=== PATIENT | male | born 1955 | race Caucasian/White ===

== ENCOUNTER 2023-03-30 19:13 | Emergency (ER) | payer MEDICARE ==
--- NOTE | 2023-03-30 19:20 | ERPHSYRPT ---
- History of Present Illness Time Seen by Provider: 03/30/23 19:20 Source: patient Exam Limitations: no limitations Physician History: This is a 67-year-old white male patient who was feeling a little nauseated and therefore he took his omeprazole. He took a second omeprazole because of more mild and persistent nausea. He denies chest pain or shortness of breath. Soon after, because the nausea persisted, the patient took Mylanta, he then soon after took a second dose of Mylanta. He then noticed rash of his skin and face anterior posterior upper torso and bilateral hands with tightening of the throat without wheezing or nausea. Timing/Duration: today Severity: mild (To moderate) Associated Symptoms: nausea, rash, No vomiting, No abdominal pain, No shortness of breath, No heartburn, No chest pain, No syncope Allergies/Adverse Reactions: aluminum hydroxide [From Mylanta] Allergy (Intermediate, Verified 03/30/23 19:40) Rash calcium carbonate [From Mylanta] Allergy (Intermediate, Verified 03/30/23 19:40) Rash camphor [From Biofreeze] Allergy (Intermediate, Verified 03/30/23 19:40) Swelling magnesium [From Mylanta] Allergy (Intermediate, Verified 03/30/23 19:40) Rash magnesium hydroxide [From Mylanta] Allergy (Intermediate, Verified 03/30/23 19:4 0) Rash menthol [From Biofreeze] Allergy (Intermediate, Verified 03/30/23 19:40) Swelling simethicone [From Mylanta] Allergy (Intermediate, Verified 03/30/23 19:40) Rash Penicillins Allergy (Unknown, Verified 03/30/23 19:40) Home Medications: Amlodipine Besylate 5 mg [Norvasc 5 mg] 5 mg PO DAILY 03/30/23 [History] Aspirin EC 81 mg [Ecotrin 81 mg] 81 mg PO DAILY 03/30/23 [History] Cholecalciferol (Vitamin D3) [Vitamin D3] 25 mcg PO DAILY 03/30/23 [History] Gabapentin [Neurontin ] 300 mg PO DAILY 03/30/23 [History] Levothyroxine Sodium 150 Mcg [Synthroid 150 Mcg] 150 mcg PO DAILY 03/30/23 [History] Lisinopril/Hydrochlorothiazide [Lisinopril-Hctz 20-12.5 mg Tab] 1 tablet PO DAILY 03/30/23 [History] Metoprolol Succinate 50 mg [Toprol Xl 50 MG] 50 mg PO DAILY 03/30/23 [History] Omeprazole 20 mg PO DAILY 03/30/23 [History] PARoxetine HCL [Paroxetine HCl] 10 mg PO DAILY 03/30/23 [History] Pioglitazone HCl 15 mg PO DAILY 03/30/23 [History] Rosuvastatin Calcium 20 mg PO DAILY 03/30/23 [History] Tramadol HCl 50 mg [Ultram 50 mg] 50 mg PO BID 03/30/23 [History] Zinc Gluconate 50 mg [Zinc Gluconate 50 MG] 50 mg PO DAILY 03/30/23 [History] Travel Risk - International Travel Have you traveled outside of the country in past 3 weeks: No - Coronavirus Screening Are you exhibiting any of the following symptoms?: Yes Symptoms: Vomiting/Diarrhea Close contact with a COVID-19 positive Pt in past 14-21 Days: No - Review of Systems Constitutional: No Symptoms Eyes: No Symptoms Ears, Nose, & Throat: No Symptoms Respiratory: No Symptoms Cardiac: No Symptoms Abdominal/Gastrointestinal: Nausea, Vomiting, Appetite Changes, No Abdominal Pain, No Diarrhea Genitourinary Symptoms: No Symptoms Musculoskeletal: No Symptoms Skin: Rash Neurological: No Symptoms Psychological: No Symptoms Endocrine: No Symptoms Hematologic/Lymphatic: No Symptoms Immunological/Allergic: No Symptoms All Other Systems: Reviewed and Negative - Past Medical History Pertinent Past Medical History: Yes - Past Surgical History Past Surgical History: Yes - Nursing Vital Signs Nursing Vital Signs: Initial Vital Signs Temperature 97.2 F 03/30/23 19:22 Pulse Rate 76 03/30/23 19:22 Respiratory Rate 16 03/30/23 19:22 Blood Pressure 139/92 03/30/23 19:22 O2 Sat by Pulse Oximetry 98 03/30/23 19:22 Pain Scale Pain Intensity 0 - Physical Exam General Appearance: no apparent distress, alert, anxiety Eye Exam: PERRL/EOMI, eyes nml inspection Ears, Nose, Throat Exam: normal ENT inspection, moist mucous membranes Neck Exam: normal inspection, non-tender, supple, full range of motion Respiratory Exam: normal breath sounds, lungs clear, airway intact, No chest tenderness, No respiratory distress, No wheezing, No stridor Cardiovascular Exam: regular rate/rhythm, normal heart sounds, normal peripheral pulses Gastrointestinal/Abdomen Exam: soft, normal bowel sounds, No tenderness Rectal Exam: not done Back Exam: normal inspection, normal range of motion, No CVA tenderness, No vertebral tenderness Extremity Exam: normal inspection, normal range of motion, pelvis stable Neurologic Exam: alert, oriented x 3, cooperative, 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 tested, normal mood/affect, nml cerebellar function, nml station & gait, sensation nml Skin Exam: rash (Red, diffuse rash face neck head upper and posterior, upper and anterior torso bilateral upper extremity) Lymphatic Exam: No adenopathy SpO2 Interpretation: normal O2 Delivery: Room Air - Course Nursing assessment & vital signs reviewed: Yes EKG Interpreted by Me: RATE, Sinus Rhythm, NORMAL AXIS, NORMAL INTERVALS, NORMAL QRS, NORMAL ST-T, Other (No acute ischemic changes on today's twelve-lead EKG.) Ordered Tests: Active Orders 24 hr Category Date Time Status EKG-ER Only STAT Care 03/30/23 20:20 Active IV Insertion STAT Care 03/30/23 19:28 Active Pulse Oximetry (ED) STAT Care 03/30/23 19:28 Active ABDOMEN AND PELVIS W/0 CONTRAS [CT] Stat Exams 03/30/23 21:10 Taken CHEST WITH CONTRAST [CT] Stat Exams 03/30/23 23:33 Completed ABG [ARTERIAL BLOOD GASES] Stat Lab 03/30/23 23:30 Completed AMYLASE Stat Lab 03/30/23 21:38 Completed CBC W DIFF Stat Lab 03/30/23 21:10 Completed CMP Stat Lab 03/30/23 21:38 Completed LIPASE Stat Lab 03/30/23 21:38 Completed TROPONIN Q4H Lab 03/30/23 20:00 Completed TROPONIN Q4H Lab 03/31/23 04:30 Ordered TROPONIN Stat Lab 03/30/23 23:15 Completed BiPap/CPAP STAT RT 03/31/23 01:18 Active Medication Summary Generic Name Dose Route Start Last Admin Trade Name Freq PRN Reason Stop Dose Admin Sodium Chloride 1,000 mls @ 100 mls/hr 03/30/23 19:30 03/30/23 23:12 Sodium Chloride 0.9% 1000 Ml IV 04/29/23 19:29 999 mls/hr .Q10H SUJEY Infusion Norepinephrine/Dextrose 8 mg in 250 mls @ 15 mls/hr 03/31/23 01:38 03/31/23 01:41 Norepinephrine 8 Mg/250 [id number]-[id number] IV 04/30/23 01:37 8 mcg/min .[id number] PRN 15 mls/hr HYPOTENSION Administration Protocol 8 MCG/MIN Discontinued Medications Generic Name Dose Route Start Last Admin Trade Name Freq PRN Reason Stop Dose Admin Methylprednisolone Sodium 0 mg 03/30/23 19:28 03/30/23 19:59 Succinate 125 mg/ Sterile IV 03/30/23 19:29 125 mg Water 2 ml STAT ONE Administration Methylprednisolone Sodium 0 mg 03/30/23 22:23 03/30/23 22:27 Succinate 125 mg/ Sterile IV 03/30/23 22:24 125 mg Water 2 ml STAT ONE Administration Diphenhydramine HCl 50 mg 03/30/23 19:28 03/30/23 19:58 Diphenhydramine Hcl 50 Mg/Ml Vial IV 03/30/23 19:29 50 mg STAT ONE Administration Diphenhydramine HCl Confirm 03/30/23 19:50 Diphenhydramine Hcl 50 Mg/Ml Vial Administered 03/30/23 19:51 Dose 50 mg .ROUTE .STK-MED ONE Famotidine 20 mg 03/30/23 19:28 03/30/23 19:56 Famotidine 20 Mg/1 Vial IV 03/30/23 19:29 20 mg STAT ONE Administration Famotidine Confirm 03/30/23 19:50 Famotidine 20 Mg/1 Vial Administered 03/30/23 19:51 Dose 20 mg IV .STK-MED ONE Sodium Chloride 1,000 mls @ 999 mls/hr 03/31/23 01:26 03/31/23 01:52 Sodium Chloride 0.9% 1000 Ml IV 03/31/23 02:26 100 mls/hr .Q1H1M STA Infusion Methylprednisolone Sodium Succinate Confirm 03/30/23 19:51 Methylprednis Sod Succ 125 Mg/2 Ml Vial Administered 03/30/23 19:52 Dose 125 mg .ROUTE .STK-MED ONE Methylprednisolone Sodium Succinate Confirm 03/30/23 22:27 Methylprednis Sod Succ 125 Mg/2 Ml Vial Administered 03/30/23 22:28 Dose 125 mg .ROUTE .STK-MED ONE Ondansetron HCl 4 mg 03/30/23 19:28 03/30/23 19:56 Ondansetron Hcl 4 Mg/2 Ml Vial IV 03/30/23 19:29 4 mg STAT ONE Administration Ondansetron HCl Confirm 03/30/23 19:50 Ondansetron Hcl 4 Mg/2 Ml Vial Administered 03/30/23 19:51 Dose 4 mg .ROUTE .STK-MED ONE Ondansetron HCl 4 mg 03/31/23 01:43 03/31/23 01:48 Ondansetron Hcl 4 Mg/2 Ml Vial IV 03/31/23 01:44 4 mg STAT ONE Administration Ondansetron HCl Confirm 03/31/23 01:49 Ondansetron Hcl 4 Mg/2 Ml Vial Administered 03/31/23 01:50 Dose 4 mg .ROUTE .STK-MED ONE Sterile Water Confirm 03/30/23 19:50 Water For Injection,Sterile 10 Ml Vial Administered 03/30/23 19:51 Dose 10 ml IJ .STK-MED ONE Sterile Water Confirm 03/30/23 22:27 Water For Injection,Sterile 10 Ml Vial Administered 03/30/23 22:28 Dose 10 ml IJ .STK-MED ONE Lab/Rad Data: Laboratory Result Diagrams 03/30/23 21:10 03/30/23 21:38 Laboratory Results 03/30/23 03/30/23 03/30/23 Range/Units 23:30 23:15 21:38 WBC (4.0-10.5) x10^3/uL RBC (4.1-5.6) x10^6/uL Hgb (12.5-18.0) g/dL Hct (42-50) % MCV (78-100) fL MCH (26-32) pg MCHC (32-36) g/dL RDW (11.5-14.0) % Plt Count (150-450) x10^3/uL MPV (7.5-11.0) fL Gran % (36.0-66.0) % Immature Gran % (Auto) (0.00-0.4) % Nucleat RBC Rel Count (0.00-0.1) % Eos # (Auto) (0-0.5) x10^3/uL Immature Gran # (Auto) (0.00-0.03) x10^3u/L Absolute Lymphs (auto) (1.0-4.6) x10^3/uL Absolute Monos (auto) (0.0-1.3) x10^3/uL Absolute Nucleated RBC (0.00-0.01) x10^3u/L Lymphocytes % (24.0-44.0) % Monocytes % (0.0-12.0) % Eosinophils % (0.00-5.0) % Basophils % (0.0-0.4) % Absolute Granulocytes (1.4-6.9) x10^3/uL Basophils # (0-0.4) x10^3/uL Puncture Site LEFT RADIAL pCO2 36 (35-45) mmHg pO2 274 H* (75-100) mmHg Base Excess -0.6 (-2.0-2.0) O2 Saturation 97.9 (94-100) g/dF ABG pH 7.42 (7.35-7.45) ABG HCO3 23.4 (22-28) ABG O2 Sat (Measured) 99.7 (95-100) % Andrew Test YES A-a Gradient 394 a/A Ratio 0.41 Hemoglobin 17.8 Carboxyhemoglobin 0.8 (0.0-6.9) % THgb Methemoglobin 1.0 L (1.4-1.5) % Temperature 37.0 C POC O2 Flow Rate 100 % Inspiratory BiPAP 14 Expiratory BiPAP 8 Sodium 138 (137-145) mmol/L Potassium 3.0 L 3.4 L (3.5-5.1) mmol/L Chloride 101 (98-107) mmol/L Carbon Dioxide 28 (22-30) mmol/L Anion Gap 13.1 (5-15) MEQ/L BUN 20 (9-20) mg/dL Creatinine 1.03 (0.66-1.25) mg/dL Estimated GFR 80.6 ML/MIN Glucose 151 H (74-106) mg/dL Calcium 9.3 (8.4-10.2) mg/dL Total Bilirubin 0.70 (0.2-1.3) mg/dL AST 20 (17-59) U/L ALT 15 (0-50) U/L Alkaline Phosphatase 86 (38-126) U/L Troponin I < 0.012 (0.000-0.034) ng/mL Serum Total Protein 7.4 (6.3-8.2) g/dL Albumin 4.2 (3.5-5.0) g/dL Amylase 70 (30-110) U/L Lipase 41 (23-300) U/L Influenza Type A Ag (NEGATIVE) Influenza Type B Ag (NEGATIVE) RSV (PCR) (NEGATIVE) SARS-CoV-2 (PCR) (NEGATIVE) 03/30/23 03/30/23 03/30/23 Range/Units 21:10 20:28 20:00 WBC 13.6 H (4.0-10.5) x10^3/uL RBC 6.30 H (4.1-5.6) x10^6/uL Hgb 17.3 (12.5-18.0) g/dL Hct 54.5 H (42-50) % MCV 86.5 (78-100) fL MCH 27.5 (26-32) pg MCHC 31.7 L (32-36) g/dL RDW 15.1 H (11.5-14.0) % Plt Count 233 (150-450) x10^3/uL MPV 10.4 (7.5-11.0) fL Gran % 90.5 H (36.0-66.0) % Immature Gran % (Auto) 0.4 (0.00-0.4) % Nucleat RBC Rel Count 0.0 (0.00-0.1) % Eos # (Auto) 0.04 (0-0.5) x10^3/uL Immature Gran # (Auto) 0.05 H (0.00-0.03) x10^3u/L Absolute Lymphs (auto) 0.82 L (1.0-4.6) x10^3/uL Absolute Monos (auto) 0.37 (0.0-1.3) x10^3/uL Absolute Nucleated RBC 0.00 (0.00-0.01) x10^3u/L Lymphocytes % 6.0 L (24.0-44.0) % Monocytes % 2.7 (0.0-12.0) % Eosinophils % 0.3 (0.00-5.0) % Basophils % 0.1 (0.0-0.4) % Absolute Granulocytes 12.28 H (1.4-6.9) x10^3/uL Basophils # 0.01 (0-0.4) x10^3/uL Puncture Site pCO2 (35-45) mmHg pO2 (75-100) mmHg Base Excess (-2.0-2.0) O2 Saturation (94-100) g/dF ABG pH (7.35-7.45) ABG HCO3 (22-28) ABG O2 Sat (Measured) (95-100) % Andrew Test A-a Gradient a/A Ratio Hemoglobin Carboxyhemoglobin (0.0-6.9) % THgb Methemoglobin (1.4-1.5) % Temperature C POC O2 Flow Rate % Inspiratory BiPAP Expiratory BiPAP Sodium (137-145) mmol/L Potassium (3.5-5.1) mmol/L Chloride (98-107) mmol/L Carbon Dioxide (22-30) mmol/L Anion Gap (5-15) MEQ/L BUN (9-20) mg/dL Creatinine (0.66-1.25) mg/dL Estimated GFR ML/MIN Glucose (74-106) mg/dL Calcium (8.4-10.2) mg/dL Total Bilirubin (0.2-1.3) mg/dL AST (17-59) U/L ALT (0-50) U/L Alkaline Phosphatase (38-126) U/L Troponin I < 0.012 (0.000-0.034) ng/mL Serum Total Protein (6.3-8.2) g/dL Albumin (3.5-5.0) g/dL Amylase (30-110) U/L Lipase (23-300) U/L Influenza Type A Ag NEGATIVE (NEGATIVE) Influenza Type B Ag NEGATIVE (NEGATIVE) RSV (PCR) NEGATIVE (NEGATIVE) SARS-CoV-2 (PCR) NEGATIVE (NEGATIVE) - Progress Progress: improved, re-examined Progress Note: 03/30/23 20:39 This patient's medical issue is 1 of moderate complexity. The level complexity in the workup performed is based on review of the patient's past medical history, review the patient's medication list, review of the drug allergy list, history present illness and physical findings on examination. The patient workup includes placement of intravenous line, infusion of Zofran, Benadryl, Pepcid, Solu-Medrol intravenously. Will also perform a twelve-lead EKG, draw troponin level and obtain viral swabs. Will also infuse normal saline solution in this patient. 03/30/23 22:15 CT scan of the abdomen pelvis without contrast was interpreted by the radiologist and I reviewed the impression. There is bilateral renal cysts. There is bilateral renal nonobstructing stones. There is small hiatal hernia. There is minimal diverticulosis. These findings were discussed with the patient. 03/30/23 22:16 The laboratory data results were interpreted by me. The patient has a mildly elevated white count. This may be secondary to vomiting episodes the patient experienced. Patient's troponin is within normal limits. There are no acute findings on the twelve-lead EKG that was performed. We will treat the the patient's allergic reaction to Mylanta with chamomile by remotely sending prescriptions of Pepcid and prednisone to the patient's pharmacy. We will have the patient take 50 mg of Benadryl orally 3 times a day for the next 4 days. Will also send prescription for ODT Zofran 4 mg remotely to his pharmacy. 03/30/23 22:24 I reexamined the patient. He appears to have some swelling of his lips. He does state that he feels that tightness in his throat again. However, he does not have chest pain and is not short of breath. We will continue observing him in the emergency department and I will give him another 125 mg of Solu-Medrol intravenously and I will have respiratory therapy evaluate him. I also dis cussed with the patient his medications and the list does include lisinopril. 03/30/23 22:26 03/30/23 23:33 I reexamined the patient his blood pressure and oxygen saturations were dropping. I repeated a twelve-lead EKG which showed normal sinus rhythm at a heart rate of 60 bpm. There is indeterminate axis. Normal QRS. Normal QT intervals. No evidence for acute ischemic changes. I ordered a repeat troponin that is pending. We increased his oxygen by nasal cannula. He now complains of chest pain and pain between his scapulae. He did not have the symptoms when he came into the hospital. We moved the patient from room 8 into room 2 which is a larger room and placed him on BiPAP. ABG is pending. Patient is alert and oriented and stated he wanted to try not to be intubated if possible. is at bedside. We will order a CT scan of the chest with contrast to evaluate for pulmonary embolism or other acute intrathoracic abnormality. 03/31/23 00:03 The patient's arterial blood gas returned. And it was interpreted by me. It does not look bad at all. Patient's pO2 was over 200 and pCO2 was in the 30s. pH is 7.4. Clinically, the patient is improving. 03/31/23 01:56 Patient reexamined. The patient has been weaned off of BiPAP and is on 6 L of oxygen via nasal cannula. His oxygen saturation levels now are 97 to 98%. Currently the patient was hypotensive with systolic blood pressure in the 80s we placed him on low-dose nor epi first reading of systolic blood pressure was just over 100 after the nor epi started. Patient's CT scan of the chest with contrast was interpreted by the radiologist. I reviewed the impression. The impression states the visualized arteries are opacified no pulmonary embolus present. There is no acute intrathoracic abnormality. There is a small nodular calcified posterior basal segment left lower lobe lesion? Granuloma. We have placed a call into [facility] to make arrangements for transfer. We are awaiting a callback. 03/31/23 04:[address] Paulino at 355 this morning. He is the emergency physician at [facility] in [facility]. I reviewed the patient history, presenting complaint, history of present illness, past medical history and results of our workup including laboratory data and radiographic study results. He accepts the patient in transfer to their facility. Counseled pt/family regarding: lab results, diagnosis, need for follow-up, rad results Medical Desision Making - Independent Historian Additional History obtained from: Spouse - Diagnostic Testing Diagnostic test were ordered, analyzed, and reviewed by me: Yes Radiological Interpretation: Reviewed by me, Teleradiologist Report - Risk of complications The pt has a high risk of morbidity or mortality based on: Decision regarding hospitilization or escalation of hosp level of care - Departure Departure Disposition: Transfer Clinical Impression: Anaphylaxis, Angioedema, Hypotension Condition: Fair Critical Care Time: Yes Critical Care Time(excluding separately billable procedures): Critical 30-74 mins (70 minutes) Referrals: MISSY MARTINEZ [Primary Care Provider] - Follow up/PCP as directed
[2023-03-30] MEDS ORDERED: BENADRYL 50 MG/ML IV ONE (19:28)
[2023-03-30] MEDS ORDERED: solu-MEDROL 125 MG, Sterile H2O 10 ml 2 ML IV ONE ×4 (19:28→22:23)
[2023-03-30] MEDS ORDERED: Pepcid 20 MG VIAL IV ONE ×2 (19:28→19:50)
[2023-03-30] MEDS ORDERED: Zofran 4 MG/2 ML VIAL IV ONE (19:28)
[2023-03-30] MEDS ORDERED: Sodium Chloride 0.9% 1000 ML 1,000 ML IV SCH (19:30)
[2023-03-30 19:39] VITALS: TEMP 97.2
[2023-03-30] MEDS ORDERED: BENADRYL 50 MG/ML ONE (19:50)
[2023-03-30] MEDS ORDERED: Sterile H2O 10 ml IJ ONE ×2 (19:50→22:27)
[2023-03-30] MEDS ORDERED: Zofran 4 MG/2 ML VIAL ONE (19:50)
[2023-03-30] MEDS ORDERED: solu-MEDROL ONE ×2 (19:51→22:27)
[2023-03-30] MEDS ORDERED: Sodium Chloride 0.9% 1000 ML 1,000 ML ONE (19:51)
[2023-03-30 21:09] LABS: INFLUENZA A NEGATIVE (NEGATIVE); INFLUENZA B NEGATIVE (NEGATIVE); RESPIRATORY SYNCTIAL VIRUS NEGATIVE (NEGATIVE); SARS-CoV-2 Xpert Express NEGATIVE (NEGATIVE)
[2023-03-30 21:42] LABS: Absolute Neutrophil Ct (ANC) 12.28 x10^3/uL (1.4-6.9); BASOPHIL % 0.1 % (0.0-0.4); Basophil (Absolute #) 0.01 x10^3/uL (0-0.4); Eosinophil % 0.3 % (0.00-5.0); Eosinophil (Absolute #) 0.04 x10^3/uL (0-0.5); Hematocrit 54.5 % (42-50); Hemoglobin 17.3 g/dL (12.5-18.0); IMMATURE GRAN # 0.05 x10^3u/L (0.00-0.03); IMMATURE GRAN % 0.4 % (0.00-0.4); Lymphocyte (Absolute #) 0.82 x10^3/uL (1.0-4.6); Mean Cell Volume 86.5 fL (78-100); Mean Corpuscular Hemoglobin 27.5 pg (26-32); Mean Corpuscular Hgb Concent. 31.7 g/dL (32-36); Mean Platelet Volume 10.4 fL (7.5-11.0); Monocyte (Absolute #) 0.37 x10^3/uL (0.0-1.3); Monocytes % 2.7 % (0.0-12.0); Neutrophil % 90.5 % (36.0-66.0); Platelet Count 233 x10^3/uL (150-450); Red Cell Distribution Width 15.1 % (11.5-14.0); White Blood Count 13.6 x10^3/uL (4.0-10.5)
[2023-03-30 21:58] LABS: ALBUMIN 4.2 g/dL (3.5-5.0); ANION GAP 13.1 MEQ/L (5-15); BILIRUBIN,TOTAL 0.7 mg/dL (0.2-1.3); Calcium 9.3 mg/dL (8.4-10.2); Creatinine 1 1.03 mg/dL (0.66-1.25); EST GLOMERULAR FILTRATION RATE 80.6 ML/MIN; Potassium 3.4 mmol/L (3.5-5.1); Total Protein 7.4 g/dL (6.3-8.2)
[2023-03-30 23:35] LABS: A-aADO2 394; ABG HEMOGLOBIN 17.8; ARTERIAL BLD GAS O2 SATURATION 99.7 % (95-100); ARTERIAL BLOOD GAS BASE EXCESS -0.6 (-2.0-2.0); ARTERIAL BLOOD GAS FIO2 100 %; ARTERIAL BLOOD GAS PCO2 36 mmHg (35-45); ARTERIAL BLOOD GAS PO2 274 mmHg (75-100); ARTERIAL BLOOD GAS pH 7.42 (7.35-7.45); CARBOXYHEMOGLOBIN 0.8 % THgb (0.0-6.9); HCO3- 23.4 (22-28); HGB O2 SAT 97.9 g/dF (94-100); paO2 pAO1 0.41
[2023-03-30 23:36] LABS: ABG SITE LEFT RADIAL; ALLEN TEST OK? YES; BIPAP(E) 8; BIPAP(I) 14
--- NOTE | 2023-03-31 00:59 | XRAY ---
CLINICAL HISTORY:CP; hypoxia; SOB COMPARISON:None TECHNIQUE:Contiguous axial images were obtained from the neck base through the upper abdomen following intravenous administration of contrast material. If IV contrast material had not been administered, the likelihood of detecting abnormalities relevant to the patient's condition would have been substantially decreased. In addition, sagittal and coronal reconstructions were performed. CT scan was performed according to ALARA (as low as reasonable achievable). FINDINGS: Small nodular calcification of size 6 x 5 mm is noted involving posterior basal segment of left lower lobe. The lungs are clear, with no focal areas of consolidation. Visualized pulmonary arteries are opacified. The central airways are patent. There are no pleural effusions. No pneumothorax is seen. Small mediastinal lymph nodes seen. No axillary, or hilar adenopathy is identified. The visualized thyroid is unremarkable. The heart, aorta, and pulmonary arteries are of normal size and configuration. No pericardial effusion is identified. Imaged portions of the upper abdomen are unremarkable. No aggressive appearing osseous lesions are identified. IMPRESSION: 1. Small nodular calcification involving posterior basal segment of left lower lobe - granuloma. 2. No acute intra thoracic abnormality. Electronically Signed by: Dr. Javy Ta MD. (03/31/2023 00:54:28 EST)
[2023-03-31] MEDS ORDERED: Sodium Chloride 0.9% 1000 ML 1,000 ML IV STA (01:26)
[2023-03-31] MEDS ORDERED: Sodium Chloride 0.9% 1000 ML 1,000 ML ONE (01:27)
[2023-03-31] MEDS ORDERED: NOREPINEPHRINE 8 MG/250 ML-D5W 8 MG/250 ML PLAST..BAG IV PRN (01:38)
[2023-03-31] MEDS ORDERED: NOREPINEPHRINE 8 MG/250 ML-D5W 8 MG/250 ML PLAST..BAG IV ONE (01:39)
[2023-03-31] MEDS ORDERED: Zofran 4 MG/2 ML VIAL IV ONE (01:43)
[2023-03-31] MEDS ORDERED: Zofran 4 MG/2 ML VIAL ONE (01:49)
[2023-03-31 04:03] VITALS: BP 103/72; PULSE 85; RESP 18; O2SAT 96
--- NOTE | 2023-03-31 08:45 | XRAY ---
Indication: Abdomen pain. Vomiting and diarrhea. Multiple contiguous axial images obtained through the abdomen and pelvis without contrast. Comparison: None Lung bases demonstrates minimal bilateral dependent atelectasis and small left base calcified granuloma. Heart not enlarged. Noncontrasted stomach and bowel loops appear nonobstructed with normal appearing appendix. Multiple bilateral renal cysts, largest on the left measuring 10.5 cm. Nonobstructing punctate renal calculus in each kidney. Previous cholecystectomy. No free fluid/air. Remaining liver, pancreas, spleen, adrenal glands, kidneys, ureters, and bladder are unremarkable for noncontrast exam. Mild scattered aortoiliac calcifications without AAA. Osseous structures intact with osteopenia, moderate/advanced L4-S1 degenerative spondylosis, and 1.2 cm anterior spondylolisthesis L5 on S1 with bilateral posterior fusion hardware. Impression: 1. Chronic findings including bilateral renal cysts, nonobstructing bilateral renal micro-calculi, arteriosclerotic disease, chronic bony findings, and and left lung base calcified granuloma. 2. Remaining CT abdomen/pelvis without contrast exam is negative.
== END 2023-03-31 04:31 | disposition short-term general hospital (02) ==
LOC: ED 19:13
DX: T88.6XXA Anaphylactic reaction due to adverse effect of correct drug or medicament properly administered, initial encounter (principal); T47.1X5A Adverse effect of other antacids and anti-gastric-secretion drugs, initial encounter; T78.3XXA Angioneurotic edema, initial encounter; I95.9 Hypotension, unspecified; R21 Rash and other nonspecific skin eruption; Z79.891 Long term (current) use of opiate analgesic; Z79.899 Other long term (current) drug therapy
CPT/HCPCS: 0241U; 36000; 36415; 36600; 71260; 74176; 80053; 82150; 82375; 82803; 83690; 84484; 85025; 93005; 94002; 94760; 94799; 96374; 96375; 96376; 99285; 99291; J1200; J2405; J2930